=== PATIENT | male | born 2000 | race Caucasian/White ===

== ENCOUNTER → 2025-06-23 | Outpatient (CLI) | payer SELFPAY ==
--- NOTE | 2025-06-23 08:51 | CT_ITS ---
PROCEDURE: SINUS/FACIAL BONE 06/23/2025 REASON FOR EXAM: ATYPICAL FACIAL PAIN TECHNIQUE: SINUS/FACIAL BONE Coronal and Sagittal reconstruction series were provided. One or more dose reduction techniques were used (e.g., Automated exposure control, adjustment of the mA and/or kV according to patient size, use of iterative reconstruction technique). RADIATION DOSE SUMMARY: CTDlvol: 33.06 mGy DLP: 792.53 mGycm COMPARISON: None FINDINGS: Frontal: There is opacification of the left frontal sinus. Ethmoid: Opacification of the ethmoid sinuses bilaterally. Sphenoid: Sphenoid sinus is clear. Maxillary: Mucosal polyp or retention cyst at the base of the right maxillary sinus. Bilateral mucosal thickening of the maxillary sinuses. Turbinates: Unremarkable Nasal Septum: Nasal septal deviation towards the right side with a spur. Mastoids/Middle Ears: Unremarkable CT/Sinus/Facial Bone IMPRESSION: Sinusitis as described. Reading Location: [place] [id number]
== END | disposition home or self-care (01) ==
LOC: CT 08:48
PROVIDERS: Referring Provider Otolaryngology; Visit Provider Otolaryngology
DX: G50.1 Atypical facial pain (principal)
CPT/HCPCS: 70486